=== PATIENT | male | born 1955 | race Caucasian/White ===

== ENCOUNTER 2017-08-05 17:41 | Emergency (ER) | payer BC ==
[~2017-08-05] VITALS: Ht 182.9 cm; Wt 95.1 kg
[2017-08-05 18:34] LABS: ADD MIUA? YES; BILIRUBIN NEGATIVE; BLOOD SMALL; COLOR STRAW ((YELLOW)); GLUCOSE (STRIP) NEGATIVE; KETONES NEGATIVE; LEUKOCYTES NEGATIVE; NITRITE NEGATIVE; PROTEIN (STRIP) NEGATIVE; SPECIFIC GRAVITY 1.009 (1.000-1.030); UROBILINOGEN 0.2 MG/DL (0.2-1.0)
[2017-08-05 18:50] LABS: BACTERIA NONE SEEN /HPF; EPITHELIAL CELLS NONE SEEN /HPF; MUCUS TRACE /LPF; RED BLOOD CELLS 0-5 /HPF (0-5); UCUL ADDED? NO; WHITE BLOOD CELLS 0-5 /HPF (0-5)
[2017-08-05 19:19] LABS: HEMATOCRIT 41.9 % (38.0-50.0); MCH 30.3 PG (29.0-34.0); MCHC 33.9 G/DL (30.0-36.0); MCV 89.3 FL (86-99); MEAN PLAT.VOLUME 10.6 uM^3 (9.0-12.4); PLATELET COUNT 172 K/uL (156-360); RBC DIS.WIDTH-CV 13.6 % (11.8-14.6); RBC DIS.WIDTH-SD 44.9 % (39-53); RED BLOOD COUNT 4.69 M/uL (4.00-5.50); WHITE BLOOD COUNT 6.8 K/uL (4.1-10.2)
[2017-08-05 19:35] LABS: CHLORIDE 105 mEq/L (99-109); POTASSIUM 4.5 mEq/L (3.7-5.4); SODIUM 140 mEq/L (136-147)
[2017-08-05 19:37] LABS: GLUCOSE 104 mg/dL (70-99)
[2017-08-05 19:38] LABS: ANION GAP 14 MEQ/L (2-14)
[2017-08-05 19:41] LABS: GFR ESTIMATE (CALCULATED) > 59 mL/min/
[2017-08-05 19:42] LABS: UREA NITROGEN (BUN) 18 mg/dL (9-23)
[2017-08-05 20:32] VITALS: BP 155/75
== END 2017-08-05 20:37 | disposition home or self-care (01) ==
LOC: EXP 17:41 → EME 17:41 → EXP 20:37
PROC: 0T9B70Z Drainage of Bladder with Drainage Device, Via Natural or Artificial Opening (ICD-10-PCS; principal; 2017-08-05)
DX: R33.9 Retention of urine, unspecified (principal)
CPT/HCPCS: 80048; 81003; 85027; 99281; 99284